=== PATIENT | male | born 1990 | race Caucasian/White ===

== ENCOUNTER 2018-04-01 14:33 | Emergency (ER) | payer MEDICAID ==
[~2018-04-01] VITALS: Ht 175.3 cm; Wt 91.6 kg
[2018-04-01 14:45] VITALS: BP 132/72; Ht 175.3 cm; Wt 91.6 kg
== END 2018-04-01 15:37 | disposition home or self-care (01) ==
LOC: ED 14:33
DX: L25.9 Unspecified contact dermatitis, unspecified cause (principal); H01.004 Unspecified blepharitis left upper eyelid; F14.10 Cocaine abuse, uncomplicated; F17.210 Nicotine dependence, cigarettes, uncomplicated; Z71.6 Tobacco abuse counseling
CPT/HCPCS: 99406

== ENCOUNTER 2018-04-06 19:49 | Emergency (ER) | payer MEDICAID ==
[~2018-04-06] VITALS: Ht 175.3 cm; Wt 89.8 kg
[2018-04-06 20:59] VITALS: BP 128/77
== END 2018-04-06 20:59 | disposition home or self-care (01) ==
LOC: ED 19:49
DX: L25.9 Unspecified contact dermatitis, unspecified cause (principal); F17.210 Nicotine dependence, cigarettes, uncomplicated; F14.10 Cocaine abuse, uncomplicated
CPT/HCPCS: 99406